=== PATIENT | male | born 1990 | race Two or more races ===

== ENCOUNTER 2017-08-19 17:39 | Emergency (ER) | payer OTHER ==
[~2017-08-19] VITALS: Ht 177.8 cm; Wt 57.6 kg
== END 2017-08-19 22:46 | disposition home or self-care (01) ==
LOC: ER 17:39
DX: J02.8 Acute pharyngitis due to other specified organisms (principal)

== ENCOUNTER 2017-10-11 17:26 | Emergency (ER) | payer OTHER ==
[~2017-10-11] VITALS: Ht 177.8 cm; Wt 57.6 kg
== END 2017-10-11 19:07 | disposition home or self-care (01) ==
LOC: ER 17:26
DX: R19.09 Other intra-abdominal and pelvic swelling, mass and lump (principal)

== ENCOUNTER 2024-08-03 08:23 | Emergency (ER) | payer OTHER ==
[~2024-08-03] VITALS: Ht 177.8 cm; Wt 63.5 kg
[2024-08-03] MEDS ORDERED: CEFTRIAXONE SODIUM 1,000 MG VIAL IM ONE (09:15)
[2024-08-03] MEDS ORDERED: MONTELUKAST SODIUM 10 MG TABLET PO ONE (09:15)
[2024-08-03] MEDS ORDERED: LORATADINE 10 MG TABLET PO ONE (09:15)
[2024-08-03] MEDS ORDERED: METHYLPREDNISOLONE SOD SUCC 40 MG VIAL IM ONE (09:15)
[2024-08-03] MEDS ORDERED: LIDOCAINE HCL 1% 10ML VIAL ONE (09:25)
[2024-08-03] MEDS ORDERED: WATER FOR INJ.,BACTERIOSTATIC 30 ML VIAL IJ ONE (09:25)
[2024-08-03] MEDS ORDERED: CEFTRIAXONE SODIUM 1,000 MG VIAL ONE (09:25)
[2024-08-03] MEDS ORDERED: METHYLPREDNISOLONE SOD SUCC 40 MG VIAL ONE (09:25)
[2024-08-03 11:07] LABS: HEMATOCRIT 44.7 % (39.0-48.0); HEMOGLOBIN 15.6 g/dL (13-16.00); MEAN CELL VOLUME 86.9 fL (80.0-100.00); MEAN CORPUSCULAR HEMOGLOBIN 30.3 pg (27.00-32.0); MEAN CORPUSCULAR HGB CONC 34.9 g/dl (32.0-36.0); PLATELET COUNT 133 K/uL (150-450); RED BLOOD COUNT 5.15 M/uL (4.00-6.00); RED CELL DISTRIBUTION WIDTH 13.3 % (11.5-14.5)
[2024-08-03] MEDS ORDERED: SINGULAIR10 MG PO (12:19)
[2024-08-03] MEDS ORDERED: ZYRTEC10 MG PO (12:19)
[2024-08-03] MEDS ORDERED: PEPCID AC20 MG PO (12:19)
== END 2024-08-03 13:07 | disposition home or self-care (01) ==
LOC: ER 08:24
PROVIDERS: General Practice
DX: R09.81 Nasal congestion (principal); Z20.822 Contact with and (suspected) exposure to COVID-19